=== PATIENT | male | born 1990 | race American Indian/Alaskan Native ===

== ENCOUNTER 2017-02-24 15:26 | Emergency (ER) | payer MEDICAID ==
[2017-02-24 15:41] VITALS: BP 151/80; PULSE 93; RESP 20; TEMP 98.2; O2SAT 95
--- NOTE | 2017-02-24 15:57 | ED PDOC ---
HPI: CCC, URI, Sore Throat Time Seen by Provider: 02/24/17 15:55 Chief Complaint (Nursing): Cough, Cold, Congestion Chief Complaint (Provider): COUGH History Per: Patient (26 Y/O MALE HERE WITH COUGH NONPRODUCTIVE X 4 DAYS AT TIMES NOTED UNCONTROLLED AFTER LAUGHING. DENIES ANY SOB/FEVERS/CHILLS/URI/SORE THROAT. HAS H/O CHILDHOOD ASTHMA. DENIES SMOKING EXCEPT FOR SOCIAL [employer]OOKAH SMOKING.) Past Medical History Reviewed: Historical Data, Nursing Documentation, Vital Signs Vital Signs: Last Vital Signs Temp 98.2 F 02/24/17 15:38 Pulse 93 H 02/24/17 15:38 Resp 20 02/24/17 15:38 BP 151/80 H 02/24/17 15:38 Pulse Ox 95 02/24/17 15:38 - Family History Family History: States: No Known Family Hx - Home Medications Home Medications: Ambulatory Orders Medication Instructions Recorded Albuterol HFA [Ventolin HFA 90 2 puff IH [id number] PRN #1 inhaler 02/24/17 mcg/actuation (8 g)] Prednisone [Deltasone] 2 tab PO DAILY #10 tablet 02/24/17 - Allergies Allergies/Adverse Reactions: Allergies Allergy/AdvReac Type Severity Reaction Status Date / Time No Known Allergies Allergy Verified 02/24/17 15:38 Review of Systems ROS Statement: Except As Marked, All Systems Reviewed And Found Negative Respiratory: Positive for: Cough Physical Exam - Reviewed Nursing Documentation Reviewed: Yes Vital Signs Reviewed: Yes - Physical Exam Appears: Positive for: Well, Non-toxic, No Acute Distress Head Exam: Positive for: ATRAUMATIC, NORMAL INSPECTION, NORMOCEPHALIC Skin: Positive for: Normal Color, Warm, DRY Eye Exam: Positive for: EOMI, Normal appearance, PERRL ENT: Positive for: Normal ENT Inspection Neck: Positive for: Normal, Painless ROM Cardiovascular/Chest: Positive for: Regular Rate, Rhythm Respiratory: Positive for: Normal Breath Sounds, Decreased Breath Sounds ( MILDLY DECREASED BREATH SOUNDS) Gastrointestinal/Abdominal: Positive for: Normal Exam, Bowel Sounds, Soft Back: Positive for: Normal Inspection Extremity: Positive for: Normal ROM Neurologic/Psych: Positive for: Alert, Oriented - ECG O2 Sat by Pulse Oximetry: 95 - Progress ED Course And Treament: PATIENT DOES NOT WANT DUONEB TREATMENT. WILL WRITE RX FOR ALBUTEROL MDI AND PREDNISONE FOR PERSISTENT COUGHING. Disposition - Clinical Impression Clinical Impression: Cough - Patient ED Disposition Is Patient to be Admitted: No - Disposition Disposition: Routine/Home Disposition Time: 15:58 Condition: FAIR Prescriptions: Albuterol HFA [Ventolin HFA 90 mcg/actuation (8 g)] 2 puff IH [id number] PRN #1 inhaler PRN Reason: Cough Prednisone [Deltasone] 2 tab PO DAILY #10 tablet Instructions: Upper Respiratory Infection (ED) Forms: [employer] ([place])
== END 2017-02-24 16:35 | disposition home or self-care (01) ==
LOC: H.ER 15:26
DX: J45.909 Unspecified asthma, uncomplicated (principal)

== ENCOUNTER 2017-02-28 13:10 | Emergency (ER) | payer MEDICAID ==
[2017-02-28 13:19] VITALS: BP 133/76; PULSE 102; RESP 18; TEMP 98.5; O2SAT 98
--- NOTE | 2017-02-28 13:48 | ED PDOC ---
HPI: CCC, URI, Sore Throat Time Seen by Provider: 02/28/17 13:33 Chief Complaint (Nursing): Cough, Cold, Congestion History Per: Patient Onset/Duration Of Symptoms: Other (2 weeks) Current Symptoms Are (Timing): Still Present Associated Symptoms: Cough. denies: Fever Severity: Mild Additional Complaint(s): Cough productive clear sputum x 2 weeks. Seen in ED 4 days ago and started on Ventolin and prednisone but no improvement. Denies fever or SOB. Denies sore throat or sinus congestion Past Medical History Vital Signs: Last Vital Signs Temp 98.5 F 02/28/17 13:16 Pulse 102 H 02/28/17 13:16 Resp 18 02/28/17 13:16 BP 133/76 02/28/17 13:16 Pulse Ox 98 02/28/17 13:48 - Medical History PMH: No Chronic Diseases - Family History Family History: States: Unknown Family Hx - Home Medications Home Medications: Ambulatory Orders Medication Instructions Recorded Albuterol HFA [Ventolin HFA 90 2 puff IH [id number] PRN #1 inhaler 02/24/17 mcg/actuation (8 g)] Prednisone [Deltasone] 2 tab PO DAILY #10 tablet 02/24/17 Azithromycin [Zithromax] 250 mg PO DAILY #6 tab 02/28/17 - Allergies Allergies/Adverse Reactions: Allergies Allergy/AdvReac Type Severity Reaction Status Date / Time No Known Allergies Allergy Verified 02/28/17 13:16 Review of Systems Constitutional: Negative for: Fever ENT: Negative for: Nose Congestion, Throat Pain Cardiovascular: Negative for: Chest Pain Respiratory: Positive for: Cough. Negative for: Shortness of Breath Physical Exam - Physical Exam Appears: Positive for: Non-toxic, No Acute Distress Skin: Positive for: Normal Color, Warm, DRY ENT: Positive for: Pharyngeal Erythema. Negative for: Tonsillar Exudate Neck: Positive for: Normal, Painless ROM Cardiovascular/Chest: Positive for: Regular Rate, Rhythm Respiratory: Positive for: CNT, Normal Breath Sounds - ECG O2 Sat by Pulse Oximetry: 98 Disposition - Clinical Impression Clinical Impression: Cough - Patient ED Disposition Is Patient to be Admitted: No Counseled Patient/Family Regarding: Studies Performed, Diagnosis, Need For Followup, Rx Given - Disposition Referrals: [facility] [Outside] Disposition: Routine/Home Disposition Time: 14:20 Condition: FAIR Prescriptions: Azithromycin [Zithromax] 250 mg PO DAILY #6 tab Instructions: Acute Bronchitis (ED) Forms: [employer] ([place]izen [place])
--- NOTE | 2017-02-28 15:33 | RAD ---
HISTORY: cough COMPARISON: No prior. TECHNIQUE: Chest PA and lateral FINDINGS: LUNGS: No active pulmonary disease. PLEURA: No significant pleural effusion identified. No pneumothorax apparent. CARDIOVASCULAR: Normal. OSSEOUS STRUCTURES: No significant abnormalities. VISUALIZED UPPER ABDOMEN: Normal. OTHER FINDINGS: None. IMPRESSION: No active disease.
== END 2017-02-28 14:35 | disposition home or self-care (01) ==
LOC: H.ER 13:10
DX: J20.9 Acute bronchitis, unspecified (principal)